=== PATIENT | male | born 1960 | race Caucasian/White ===

== ENCOUNTER 2019-11-07 21:27 | Inpatient (IN) | payer MEDICAID ==
[~2019-11-07] VITALS: Ht 172.7 cm; Wt 56.7 kg
--- NOTE | 2019-11-07 21:33 | NUR ---
MASK PLACED ON PATIENT FOR PRECAUTIONS.
--- NOTE | 2019-11-07 21:33 | NUR ---
Pt bibself c/o RUQ abdominal pain x 4 days, pt awake, alert, -sob, nad noted, vss, pending md thurston
[2019-11-07] MEDS ORDERED: MORPHINE SULFATE INJ 2 MG/ML DISP.SYRIN IV ONE (23:00)
[2019-11-07] MEDS ORDERED: MORPHINE SULFATE INJ 4 MG/ML DISP.SYRIN ONE (23:13)
[2019-11-07 23:20] LABS: BASOPHILS # (AUTO) 0.1 /CMM (0.0-0.2); BASOPHILS % (AUTO) 0.4 % (0.0-2.0); EOSINOPHILS % (AUTO) 0.2 % (0.0-6.0); HEMATOCRIT 30 % (39-51); HEMOGLOBIN 9.3 g/dL (13.5-17.5); LYMPHOCYTES # (AUTO) 2.4 /CMM (0.8-4.8); LYMPHOCYTES % (AUTO) 12.3 % (20.0-44.0); MEAN CORPUSCULAR HGB CONC 31 g/dl (31.0-36.0); MEAN CORPUSCULAR VOLUME 77 fL (80-96); MONOCYTES # (AUTO) 1.8 /CMM (0.1-1.30); MONOCYTES % (AUTO) 8.8 % (2.0-12.0); NEUTROPHILS # (AUTO) 15.6 /CMM (1.8-8.9); NEUTROPHILS % (AUTO) 78.3 % (43.0-81.0); PLATELET COUNT (AUTO) 269 /CMM (150-450); RED BLOOD CELL COUNT(AUTO) 3.85 MIL/uL (4.5-6.0); WHITE BLOOD COUNT (AUTO) 19.9 K/uL (4.3-11.0)
[2019-11-07 23:27] LABS: CALCIUM, SERUM 8.5 mg/dL (8.5-10.1)
[2019-11-07 23:32] LABS: ALBUMIN 1.6 g/dL (3.4-5.0); BILIRUBIN,DIRECT 2.1 mg/dL (0.0-0.2); BILIRUBIN,TOTAL 2.5 mg/dL (0.2-1.0); TOTAL PROTEIN, SERUM 7.9 g/dL (6.4-8.2)
[2019-11-07] MEDS ORDERED: IV NS 0.9% 250 ML IV ONE (23:52)
[2019-11-07] MEDS ORDERED: IOHEXOL-300 100 ML VIAL IV ONE (23:52)
[2019-11-07] MEDS ORDERED: CT SWABBABLE VALVE TRANS SET 1 EA INFUS.SET MC ONE (23:52)
[2019-11-08] MEDS ORDERED: VANCOMYCIN 1 GM in IV D5W 250 ML IV ONE (01:30)
[2019-11-08] MEDS ORDERED: PIPERACILLIN /TAZOBACTAM 3.375 G in IV D5W 50 ML IV ONE (01:30)
[2019-11-08] MEDS ORDERED: PIPERACILLIN /TAZOBACTAM 3.375 G VIAL IV ONE (01:45)
[2019-11-08 01:56] LABS: APPEARANCE,URINE Slightly Cloudy (CLEAR); BILIRUBIN,URINE MODERATE (NEGATIVE); BLOOD, URINE Negative Ery/uL (NEGATIVE); COLOR,URINE Amber (YELLOW); KETONES,URINE Negative (NEGATIVE); LEUKOCYTE ESTERASE ,URINE Negative (NEGATIVE); NITRITE, URINE Negative (NEGATIVE); PH,URINE 5.5 (5.0-8.0); PROTEIN,URINE 100 mg/dl (NEGATIVE); UGLUCOSE Negative (NEGATIVE)
[2019-11-08 02:15] LABS: BACTERIA,URINE Few /HPF (None Seen); MUCUS,URINE Few /LPF (None Seen); RBC,URINE 0-2 /HPF (0-2); SQUAMOUS EPITHELIAL CELL,UR Rare /HPF (None Seen); WBC,URINE 0-2 /HPF (0-3)
[2019-11-08] MEDS ORDERED: VANCOMYCIN 1 GM VIAL ONE (02:28)
[2019-11-08] MEDS ORDERED: IV NS 0.9% 1,000 ML BAG IV ONE (02:30)
--- NOTE | 2019-11-08 02:30 | NUR ---
PT RESTING COMFORTABLY IN BED. VITAL SIGNS STABLE. NO ACUTE DISTRESS NOTED AT THIS TIME. WILL CONTINUE TO MONITOR
--- NOTE | 2019-11-08 04:52 | NUR ---
BED ASSIGNMENT 315-1
[2019-11-08] MEDS ORDERED: SORBITOL SOLUTION 30 ML PO ONE (06:00)
--- NOTE | 2019-11-08 06:30 | NUR ---
DR. SALDANA ON THE PHONE WITH DR. SOUSA
--- NOTE | 2019-11-08 06:53 | NUR ---
REPORT GIVEN TO OANH LUI FOR RAMSEY
[2019-11-08] MEDS ORDERED: ZOLPIDEM TARTRATE 5 MG TABLET PO PRN (07:00)
[2019-11-08] MEDS ORDERED: ONDANSETRON HCL/PF 4 MG/2 ML VIAL IVP PRN (07:00)
[2019-11-08] MEDS ORDERED: HYDROCODONE/APAP 5/325MG 1 EACH TABLET PO PRN (07:00)
[2019-11-08] MEDS ORDERED: ACETAMINOPHEN 325 MG TABLET PO PRN (07:00)
[2019-11-08] MEDS ORDERED: MAG HYDROX/AL HYDROX/SIMETH 30 ML UDC PO PRN (07:00)
[2019-11-08] MEDS ORDERED: Z GUARD REMEDY 2 OZ OINT TP PRN (07:00)
[2019-11-08] MEDS ORDERED: MAGNESIUM HYDROXIDE 30 ML UDC PO PRN (07:00)
--- NOTE | 2019-11-08 07:33 | NUR ---
RN MS NOTES RECEIVED PT FROM E.R. STAFF, PT IS AWAKE, ALERT AND ORIENTED, ASSISTED TO BED, MADE COMFORTABLE, ROOM SET UP ORIENTATION PROVIDED TO PT. VERBALIZED UNDERSTANDING, CALL LIGHT WITHIN REACH, WITH COMPLAINT OF RUQ ABDOMINAL PAIN, NO COMPLAINT OF NAUSEA OR VOMITING, KEPT WARM AND COMFORTABLE IN BED.
[2019-11-08] MEDS ORDERED: FEE PK DOSING 1 MIN EA MC ONE (07:45)
[2019-11-08 08:00] VITALS: BP 140/102
[2019-11-08] MEDS: MORPHINE SULFATE INJ 2 MG/ML DISP.SYRIN IV PRN ×2 (08:14→17:31)
--- NOTE | 2019-11-08 08:15 | NUR ---
RN MS NOTES PT SEEN AND EXAMINED BY DR. JONES, PLAN OF CARE DISCUSSED WITH PT, VERBALIZED UNDERSTANDING, PAIN MEDS GIVEN ORDERED, NEEDS ATTENDED.
[2019-11-08] MEDS: POTASSIUM CHLORIDE 20 MEQ TAB.PRT.SR PO SCH ×3 (09:00→11:10)
[2019-11-08] MEDS: IV NS 0.9% 1,000 ML IV PRN ×2 (09:01→23:22)
[2019-11-08] MEDS: PIPERACILLIN /TAZOBACTAM 3.375 G in IV D5W 50 ML IV SCH ×3 (09:43→20:17)
--- NOTE | 2019-11-08 13:22 | NUR ---
RN MS NOTES PT EXAMINED BY TATUM SIMON, PT WITH SOFT AND DISTENDED ABDOMEN, WITH HERNIA, NO COMPLAINT OF PAIN AT THIS TIME.
--- NOTE | 2019-11-08 13:22 | NUR ---
RN MS NOTES PT IN BED, AWAKE, ALERT AND ORIENTED, NO COMPLAINT OF PAIN, BREATHING PATTERN NORMAL, SEEN AND EXAMINED BY TATUM ACOUSTIC SENSOR OPERATOR, PLAN OF CARE DISCUSSED WITH PT, VERBALIZED UNDERSTANDING, RECEIVED ORDERS FROM DR. MONTALVO FOR COLONOSCOPY TOMORROW, PT AGREED FOR THE PROCEDURE, CONSENTS SIGNED.
[2019-11-08 16:00] VITALS: BP 127/93
[2019-11-08] MEDS: VANCOMYCIN 1 GM in IV D5W 250 ML IV SCH (16:09)
--- NOTE | 2019-11-08 18:22 | NUR ---
RN MS NOTES PT IN BED, RESTING, PAIN MEDS GIVEN FOR PAIN MANAGEMENT, NOT IN DISTRESS, IV FLUIDS INFUSING WELL, DR MONTALVO ORDERED TO GET CONSENT ALSO FOR EGD, PROCEDURE EXPLAINED TO PT, VERBALIZED UNDERSTANDING, PT SIGNED CONSENT, ALL NEEDS ATTENDED.
--- NOTE | 2019-11-08 19:26 | NUR ---
RN NOTES RECEIVED PATIENT AWAKE, NEPHEW AT BEDSIDE. PATIENT IS CALM, WITH DISCOMFORT TOLERATED AT THIS TIME, IV ACCESS INTACT AND PATENT, IVF INFUSING WELL, NO S/S OF INFECTION, ASPIRATION PRECAUTION EMPHASIZED, SAFETY MEASURES IN PLACE, CALL LIGHT WITH IN EASY REACH, PATIENT UNDERSTAND THAT HE WILL HAVE COLONOSCOPY AND EGD TOMORROW, NOTHING BY MOUTH BY 12 MIDNIGHT, WILL TAKE GOLYTELY THROUGHOUT THE NIGHT. ALL NEEDS ANTICIPATED, WILL CONTINUE TO MONITOR ACCORDINGLY.
[2019-11-08 20:00] VITALS: BP 145/88
[2019-11-08] MEDS ORDERED: PEG 3350/NA SULF,BICARB,CL/KCL 4,000 ML BOTTLE PO ONE (20:00)
[2019-11-09] VITALS (10 sets, daily range): BP systolic 110–138; BP diastolic 80–108
[2019-11-09] MEDS: PIPERACILLIN /TAZOBACTAM 3.375 G in IV D5W 50 ML IV SCH ×4 (03:11→20:48)
[2019-11-09] MEDS: MORPHINE SULFATE INJ 2 MG/ML DISP.SYRIN IV PRN ×2 (03:27→16:14)
[2019-11-09] MEDS: VANCOMYCIN 1 GM in IV D5W 250 ML IV SCH ×2 (04:26→16:01)
[2019-11-09] MEDS ORDERED: SORBITOL SOLUTION 30 ML PO ONE (06:00)
--- NOTE | 2019-11-09 06:59 | NUR ---
RN NOTES ALL NEEDS ATTENDED AND MET ABLE TO REST, STILL WITH DISCOMFORT, NOTED 3X BOWEL MOVEMENT, STILL FORMED AND BROWN COLOR. WILL ENDORSE TO AM NURSE FOR CONTINUITY OF CARE.
--- NOTE | 2019-11-09 07:23 | NUR ---
RN NOTES RECEIVED PATIENT AWAKE IN BED IN NO ACUTE SIGN SO DISTRESS. A/O X4. ABLE TO MAKE NEEDS KNOWN, DENIES PAIN OR ANY DISCOMFORTS AT THIS TIME. PATIENT FOR COLONOSCOPY AND EGD TODAY, NPO EXCEPT MEDS MAINTAINED.CONTINUE ON GOLYTELY ORDERED. IV ACCESS ON LEFT HAND G #22 INTACT AND PATENT, IVF OF NS @ 100ML/HR INFUSING WELL, NO S/S OF INFILTRATIONS AT SITE NOTED. SAFETY MEASURES IN PLACE: BED IN LOW LOCKED POSITION WITH SR UP X2. CALL LIGHT WITH IN EASY REACH. WILL CONTINUE TO MONITOR ACCORDINGLY.
[2019-11-09 07:45] LABS: BASOPHILS # (AUTO) 0.1 /CMM (0.0-0.2); BASOPHILS % (AUTO) 0.5 % (0.0-2.0); HEMATOCRIT 33 % (39-51); LYMPHOCYTES # (AUTO) 1.5 /CMM (0.8-4.8); LYMPHOCYTES % (AUTO) 7.2 % (20.0-44.0); MEAN CORPUSCULAR HGB CONC 31 g/dl (31.0-36.0); MEAN CORPUSCULAR VOLUME 77 fL (80-96); MONOCYTES # (AUTO) 1.2 /CMM (0.1-1.30); MONOCYTES % (AUTO) 5.7 % (2.0-12.0); NEUTROPHILS # (AUTO) 17.6 /CMM (1.8-8.9); NEUTROPHILS % (AUTO) 86.6 % (43.0-81.0); PLATELET COUNT (AUTO) 294 /CMM (150-450); RED BLOOD CELL COUNT(AUTO) 4.28 MIL/uL (4.5-6.0); WHITE BLOOD COUNT (AUTO) 20.3 K/uL (4.3-11.0)
[2019-11-09 08:03] LABS: CALCIUM, SERUM 7.9 mg/dL (8.5-10.1); CREATININE 0.8 mg/dL (0.6-1.3); MAGNESIUM 1.6 mg/dL (1.8-2.4); PHOSPHORUS 3.2 mg/dL (2.5-4.9); POTASSIUM 3.2 mmol/L (3.5-5.1)
[2019-11-09] MEDS ORDERED: NIFE20CA PO (09:45)
[2019-11-09] MEDS ORDERED: GLIM4TAB37 PO (09:45)
[2019-11-09] MEDS: POTASSIUM CHLORIDE 20 MEQ TAB.PRT.SR PO SCH ×2 (10:07→11:07)
[2019-11-09] MEDS: Magnesium 1GM/D5W 100ML PREMIX 100 ML IV SCH ×2 (11:35→15:03)
--- NOTE | 2019-11-09 11:55 | NUR ---
RN NOTES PATIENT PICKED-UP VIA HIS BED TO SURGERY FOR EGD AND COLONOSCOPY.
[2019-11-09] MEDS ORDERED: METHYLENE BLUE 10 ML VIAL ONE (14:01)
--- NOTE | 2019-11-09 15:12 | NUR ---
RN NOTES PT RETURNED FROM SURGERY S/P EGD AND COLONOSCOPY BY DR MONTALVO WITH ORDER TO RESUME PRE-PROCEDURES ORDERS AND START CARDIAC DIET/DIABETIC DIET ORDERED. PT REMAINS A/O X4 AND ABLE TO MAKE NEEDS KNOWN. VS CHECKED: BP 136/97, P 94, R 16 , T 98.1F AND SP02 94% ON ROOM AIR. WILL CONTINUE TO MONITOR
--- NOTE | 2019-11-09 16:15 | NUR ---
RN NOTES/PAIN MANAGEMENT PT C/O OF ACHING SHARP PAIN ON RIGHT UPPER QUADRANT WITH SCALE OF 8/10. PRN MORPHINE 2MG/1ML ADMINISTERED AT 1614. WILL CONTINUE TO MONITOR AND REASSESS PT.
--- NOTE | 2019-11-09 18:36 | NUR ---
MS RN CLOSING NOTES PATIENT AWAKE IN BED WATCHING TV AT THIS TIME. A/O X4. ABLE TO MAKE NEEDS KNOWN. ON ROOM AIR, TOLERATING WELL WITH NO SOB NOTED DURING SHIFT. PIV'S ON LAC G#18 AND LEFT HAND G #22 BOTH INTACT AND PATENT, IVF OF NS @ 100ML/HR INFUSING WELL TO LEFT HAND, NO S/S OF INFILTRATIONS NOTED. SAFETY MEASURES IN PLACE: BED IN LOW LOCKED POSITION WITH SR UP X2. CALL LIGHT WITH IN EASY REACH. ALL NEEDS AND CARE ATTENDED WELL. WILL ENDORSE TO CAREER REPRESENTATIVE NURSE FOR RAMSEY..
[2019-11-09] MEDS: IV NS 0.9% 1,000 ML IV PRN (18:52)
--- NOTE | 2019-11-09 19:35 | NUR ---
MS RN NOTES PATIENT RECEIVED IN BED LAYING COMFORTABLY. PATIENT EASILY AWAKEN BY NAME AND LIGHT TOUCH. ALERT AND ORIENTED X 4. PATIENT ON ROOM AIR WITH NO SIGNS OF RESPIRATORY DISTRESS, PRESENTS NO SIGNS OF SOB, AND WITH EVEN NON-LABORED BREATHING. PATIENT IV ACCESS IN PLACE, PATENT AND INTACT. PATIENT COMPLAINS OF NO PAIN OR DISCOMFORT, PROVIDED COMFORT MEASURES TO PATIENT. SAFETY PRECAUTIONS IN PLACE WITH THE BED IN THE LOWEST POSITION, BILATERAL SIDE RAILS UP, BED LOCKED, BED ALARM ON, AND CALL LIGHT WITHIN EASY REACH OF THE PATIENT. WILL CONTINUE TO MONITOR PATIENT.
[2019-11-10 01:34] LABS: FERRITIN 599 ng/mL (8-388)
[2019-11-10 01:37] LABS: IRON, SERUM 27 ug/dl (50-175); TOTAL IRON BINDING CAPACITY 121 ug/dl (250-450)
[2019-11-10] MEDS: PIPERACILLIN /TAZOBACTAM 3.375 G in IV D5W 50 ML IV SCH ×4 (02:10→21:04)
[2019-11-10] MEDS: VANCOMYCIN 1 GM in IV D5W 250 ML IV SCH ×2 (03:00→15:37)
[2019-11-10] MEDS: MORPHINE SULFATE INJ 2 MG/ML DISP.SYRIN IV PRN ×3 (03:21→20:54)
--- NOTE | 2019-11-10 03:34 | NUR ---
MS RN NOTES PATIENT COMPLAINS OF PAIN 8/10 LOCATED ON RIGHT ABDOMEN. ADMINISTERED PRN MORPHINE 2mg/1ml AT 0321. WILL CONTINUE TO MONITOR PATIENT AND WILL REASSESS PATIENT PAIN LEVEL.
--- NOTE | 2019-11-10 06:50 | NUR ---
MS RN NOTES PATIENT IN BED LAYING COMFORTABLY, DENIES ANY PAIN OR DISCOMFORT AT THE THIS TIME. ALERT AND ORIENTED X 4. PATIENT ON ROOM AIR WITH NO SIGNS OF RESPIRATORY DISTRESS AND WITH EVEN NON-LABORED BREATHING. PATIENT IV ACCESS IN PLACE, INTACT AND PATENT RUNNING NS AT 100ml/hr. SKIN KEPT CLEAN AND DRY. MET ALL PATIENT'S NEEDS AND PROVIDED COMFORT MEASURES TO PATIENT. SAFETY PRECAUTIONS IN PLACE WITH BED IN THE LOWEST POSITION, BILATERAL SIDE RAILS UP, HEAD OF THE BED IN SEMI-FOWLERS POSITIONS, BED LOCKED, AND CALL LIGHT WITHIN EASY REACH OF THE PATIENT. WILL ENDORSE RAMSEY TO UPCOMING DAYSHIFT NURSE.
[2019-11-10 08:00] VITALS: BP 136/95
--- NOTE | 2019-11-10 08:00 | NUR ---
m/s record changer: initial assessment received pt in bed awake, a/ox4. no c/o pain or any discomfort. for oncology consult. pt aware. no distress noted. will continue to monitor.
[2019-11-10 08:08] LABS: CALCIUM, SERUM 7.8 mg/dL (8.5-10.1); CREATININE 1.2 mg/dL (0.6-1.3); POTASSIUM 4.8 mmol/L (3.5-5.1)
[2019-11-10 08:09] LABS: MAGNESIUM 2.4 mg/dL (1.8-2.4)
[2019-11-10] MEDS: IV D5/ 0.9% NACL 1,000 ML IV PRN ×2 (08:48→21:05)
--- NOTE | 2019-11-10 10:29 | NUR ---
m/s director financial services: md visit seen by dr. kellogg with new orders. orders acknowledged.
--- NOTE | 2019-11-10 12:00 | NUR ---
m/s supervisor inventory merchandising: notes pt request to have his iv remove to right ac. removed h/l per pt's request with tip intact.
--- NOTE | 2019-11-10 12:10 | NUR ---
m/s healthcare customer service: surgeon f/u seen and examined by yani (vahe) at this time. still awaiting for oncology to see pt.
--- NOTE | 2019-11-10 14:00 | NUR ---
m/s museum specialist: notes resting comfortable. no c/o pain or any discomfort. instructed to call for assistance. will monitor.
[2019-11-10 16:00] VITALS: BP 127/92
--- NOTE | 2019-11-10 16:00 | NUR ---
m/s field property loss specialist: notes resting comfortable in bed. no distress noted.
--- NOTE | 2019-11-10 18:44 | NUR ---
m/s coach driver: notes on the phone at this time. no distress noted. needs attended. call light within reach. will continue to monitor.
--- NOTE | 2019-11-10 19:00 | NUR ---
m/s commercial loan coordinator: notes report given to jennie (ainsley) for continuity of care.
--- NOTE | 2019-11-10 19:20 | NUR ---
MS RN NOTES PATIENT RECEIVED IN BED RESTING ALERT AND ORIENTED X 4. PATIENT ON ROOM AIR WITH NO SIGNS OF RESPIRATORY DISTRESS PRESENT, NO COMPLAINS OR SIGNS OF SOB, WITH EVEN NON-LABORED BREATHING. PATIENT IV ACCESS INTACT AND PATENT. PROVIDED COMFORT MEASURES TO PATIENT. AWAITING FOR ONCOLOGY CONSULT. SAFETY PRECAUTIONS IMPLEMENTED WITH BED IN THE LOWEST POSITION, BILATERAL SIDE RAILS UP, BED LOCKED, AND CALL LIGHT WITHIN EASY REACH OF PATIENT. WILL CONTINUE TO MONITOR PATIENT.
[2019-11-10 20:00] VITALS: BP 131/79
--- NOTE | 2019-11-10 21:00 | NUR ---
MS RN NOTES PATIENT COMPLAINS OF DISCOMFORT AND SHARP PAIN ON RIGHT SIDE OF ABDOMEN, RATING 9/10. ADMINISTERED PRN PAIN MEDICATION MORPHINE 2mg/ml. WILL CONTINUE TO MONITOR PATIENT AND REASSESS HIS PAIN LEVEL.
[2019-11-11] MEDS: PIPERACILLIN /TAZOBACTAM 3.375 G in IV D5W 50 ML IV SCH ×4 (02:30→20:56)
[2019-11-11 07:27] LABS: BASOPHILS # (AUTO) 0.1 /CMM (0.0-0.2); BASOPHILS % (AUTO) 0.8 % (0.0-2.0); HEMATOCRIT 31 % (39-51); HEMOGLOBIN 9.4 g/dL (13.5-17.5); LYMPHOCYTES % (AUTO) 12.2 % (20.0-44.0); MEAN CORPUSCULAR HGB CONC 31 g/dl (31.0-36.0); MEAN CORPUSCULAR VOLUME 78 fL (80-96); MONOCYTES # (AUTO) 1.4 /CMM (0.1-1.30); MONOCYTES % (AUTO) 8.5 % (2.0-12.0); NEUTROPHILS # (AUTO) 12.9 /CMM (1.8-8.9); NEUTROPHILS % (AUTO) 77.5 % (43.0-81.0); PLATELET COUNT (AUTO) 253 /CMM (150-450); RED BLOOD CELL COUNT(AUTO) 3.91 MIL/uL (4.5-6.0); WHITE BLOOD COUNT (AUTO) 16.6 K/uL (4.3-11.0)
--- NOTE | 2019-11-11 07:30 | NUR ---
RECEIVED PT. THIS AM ALERT AND ORIENTED X4.
--- NOTE | 2019-11-11 07:34 | NUR ---
MS RN NOTES PATIENT IN BED RESTING, EASILY AWAKEN BY NAME AND LIGHT TOUCH, ALERT AND ORIENTED X 4. PATIENT ON ROOM AIR WITH EVEN NON-LABORED BREATHING. PATIENT SKIN KEPT CLEAN AND DRY, IV ACCESS INTACT AND PATENT RUNNING D5 NS AT 100ml/hr. MET ALL NEEDS OF PATIENT AND PROVIDED COMFORT MEASURES. SAFETY PRECAUTIONS IMPLEMENTED WITH BED IN THE LOWEST POSITION, BILATERAL SIDE RAILS UP, BED ALARM ON, BED LOCKED AND CALL LIGHT WITHIN EASY REACH OF THE PATIENT. WILL ENDORSE PLAN OF CARE TO UPCOMING DAYSHIFT NURSE.
[2019-11-11 08:00] VITALS: BP 142/96
[2019-11-11 08:03] LABS: CALCIUM, SERUM 7.4 mg/dL (8.5-10.1); MAGNESIUM 1.9 mg/dL (1.8-2.4); PHOSPHORUS 2.3 mg/dL (2.5-4.9)
[2019-11-11 08:37] LABS: POTASSIUM 2.7 mmol/L (3.5-5.1)
[2019-11-11] MEDS: FERROUS SULFATE (325 MG) 325 MG/TAB TABLET PO SCH ×2 (09:36→18:42)
[2019-11-11] MEDS: POTASSIUM CHLORIDE 20 MEQ TAB.PRT.SR PO SCH ×2 (09:36→13:34)
[2019-11-11] MEDS: MORPHINE SULFATE INJ 2 MG/ML DISP.SYRIN IV PRN ×2 (09:59→20:47)
[2019-11-11 16:00] VITALS: BP 140/90
--- NOTE | 2019-11-11 16:00 | NUR ---
MED. X1 FOR ABD. PAIN WITH MORPHINE INJ.
--- NOTE | 2019-11-11 17:00 | NUR ---
GIVEN KCL REPLACEMENT FOR LOW POTASSIUM.
--- NOTE | 2019-11-11 19:00 | NUR ---
DR. KHOURY IN AND TOLD PT. THAT HE HAS COLON CA.
[2019-11-11 20:00] VITALS: BP 154/84
--- NOTE | 2019-11-11 20:48 | NUR ---
MS/RN OPENING NOTES PATIENT IN BED, REPORTD SEVERE PAIN OF 9/10 IN ABDOMEN HAD DINNER TONIGHT EAT HALF. NEEDED MORPHINE REQUESTED. WILL MONITOR. BED LOCKEDD, CALL LIGHTS WITHIN REACH, WILL MONITOR. RESPIRATIONS EVEN AND UNLABORED, WITH IV ON LEFT HAND GAUGE 20, ON IV FLUIDS. TO MONITOR. USES BSC AND URINAL, DISCUSSES SAFETY PREVENTION, VERBALIZED UNDERSTANDING.
[2019-11-12] MEDS: IV D5/ 0.9% NACL 1,000 ML IV PRN (01:58)
[2019-11-12] MEDS: PIPERACILLIN /TAZOBACTAM 3.375 G in IV D5W 50 ML IV SCH ×3 (02:01→15:45)
[2019-11-12] MEDS: MORPHINE SULFATE INJ 2 MG/ML DISP.SYRIN IV PRN ×4 (04:00→17:19)
--- NOTE | 2019-11-12 04:00 | NUR ---
MS/RN NOTES MORPHINE IV 2MG ADMINISTER TO PATIENT FOR SEVERE PAIN UPON AWAKENING FROM SLEEP .
--- NOTE | 2019-11-12 04:05 | NUR ---
MS/RN NOTES BLOOD PRESSURE TAKEN AT 139/98 WITH PULSE RATE OF 94 PRIOR TO ADMINISTRATION OF MORPHINE. ALERT, ORIENTED.
[2019-11-12 06:28] LABS: BASOPHILS # (AUTO) 0.2 /CMM (0.0-0.2); BASOPHILS % (AUTO) 0.8 % (0.0-2.0); EOSINOPHILS % (AUTO) 0.9 % (0.0-6.0); HEMATOCRIT 30 % (39-51); HEMOGLOBIN 9.3 g/dL (13.5-17.5); LYMPHOCYTES # (AUTO) 1.9 /CMM (0.8-4.8); LYMPHOCYTES % (AUTO) 10.5 % (20.0-44.0); MEAN CORPUSCULAR HGB CONC 31 g/dl (31.0-36.0); MEAN CORPUSCULAR VOLUME 79 fL (80-96); MONOCYTES # (AUTO) 1.7 /CMM (0.1-1.30); MONOCYTES % (AUTO) 9.1 % (2.0-12.0); NEUTROPHILS # (AUTO) 14.4 /CMM (1.8-8.9); NEUTROPHILS % (AUTO) 78.7 % (43.0-81.0); PLATELET COUNT (AUTO) 245 /CMM (150-450); RED BLOOD CELL COUNT(AUTO) 3.84 MIL/uL (4.5-6.0); WHITE BLOOD COUNT (AUTO) 18.3 K/uL (4.3-11.0)
[2019-11-12 06:52] LABS: CALCIUM, SERUM 7.4 mg/dL (8.5-10.1); CREATININE 0.9 mg/dL (0.6-1.3); MAGNESIUM 1.7 mg/dL (1.8-2.4); PHOSPHORUS 2.1 mg/dL (2.5-4.9); POTASSIUM 3.2 mmol/L (3.5-5.1)
--- NOTE | 2019-11-12 06:53 | NUR ---
323-2 MS/RN CLOSING NOTES PATIENT ABLE TO SLEEP DURING THE NIGHT, ALERT, ORIENTED ABLE TO VERBALIZED NEEDS, ON PAIN MANAGEMENT MONITOIRNG.SKIN INTACT AND DRY, DISCUSSED SAFETY MEASURES, ATTENDED ALL NEEDS. BED LOCKED, CALL LIGHTS WITHIN REACH. WILL ENDORSE TO AM RN FOR RAMSEY. IV FLUIDS RUNNING.
[2019-11-12 08:00] VITALS: BP_SYST 127; BP_SYST 140; BP_DIAS 106; BP_DIAS 84
--- NOTE | 2019-11-12 08:00 | NUR ---
MS RN OPENING NOTES RECEIVED PT IN BED. AWAKE ALERT AND ORIENTED X3. NO CARDIAC OR RESP DISTRESS NOTED. NO SOB NOTED. SATURATING WELL ON ROOM AIR. CONTINENT OFB/B USES BSC AND URINAL. IV ACCESS NOTED ON L HAND G22. D5NS RUNNING AT 100ML/HR. TOLERATING IV FLUIDS WELL. NO S/S OF INFECTION OR INFILTRATION NOTED. SAFETY PRECAUTIONS IN PLACE. CALL LIGHT WITHIN REACH. BED LOCKED AND IN LOW POSITION. SIDE RAILS UP X2. WILL CONT TO MONITOR.
[2019-11-12] MEDS: FERROUS SULFATE (325 MG) 325 MG/TAB TABLET PO SCH ×2 (08:06→16:20)
[2019-11-12] MEDS: POTASSIUM CHLORIDE 20 MEQ TAB.PRT.SR PO SCH ×2 (09:43→11:04)
[2019-11-12] MEDS: Magnesium 1GM/D5W 100ML PREMIX 100 ML IV SCH ×2 (09:44→11:33)
[2019-11-12] MEDS ORDERED: K PHOS NEUTRAL 250 MG TABLET PO ONE (10:00)
--- NOTE | 2019-11-12 13:00 | NUR ---
PTS NEPHEW CALLED PTS NEPHEW WAS CALLED AND NOTIFIED REGARDINGS PLAN FOR D/C TODAY. PER CARLY SYKES. HE WILL BE HERE AROUND 730PM TONIGHT ONCE HE GETS OFF WORK.
--- NOTE | 2019-11-12 18:21 | NUR ---
MS RN CLOSING NOTES PT IN BED. AWAKE ALERT AND ORIENTED X3. NO CARDIAC OR RESP DISTRESS NOTED. NO SOB NOTED. SATURATING WELL ON ROOM AIR. CONTINENT OF B/B USES BSC AND URINAL. IV ACCESS NOTED ON L HAND G22. D5NS RUNNING AT 100ML/HR. TOLERATING IV FLUIDS WELL. NO S/S OF INFECTION OR INFILTRATION NOTED. SAFETY PRECAUTIONS IN PLACE. CALL LIGHT WITHIN REACH. BED LOCKED AND IN LOW POSITION. SIDE RAILS UP X2. PT IS SCHEDULED TO BE DISCHARGED TONIGHT. NEPHEW WILL BE PICKING HIM UP AROUND 730PM. PTS PAIN WAS MANAGED THROUGHOUT THE SHIFT. WILL ENDORSE TO NEXT SHIFT.
--- NOTE | 2019-11-12 19:45 | NUR ---
MS/FITTER/WELDER NOTES: PATIENT'S NEPHEW ARRIVED, WAITING IN THE LOBBY. PATIENT EDUCATED ON DISCHARGE INFORMATION. PATIENT'S NEPHEW ALSO INFORMED ABOUT THE DISCHARGE INFORMATION AND PRESCRIPTION. IV LINE REMOVED. APPLIED GAUZE TO PREVENT BLEEDING. PATIENT LEFT THE UNIT VIA WHEELCHAIR AT 1945, IN STABLE CONDITION.
== END 2019-11-12 19:45 | disposition home or self-care (01) | DRG 720 ==
LOC: ER 21:37 → TELE 11-08 05:18 → MED 11-08 09:46
PROVIDERS: ADMIT Family Medicine; ATTEND Student in an Organized Health Care Education/Training Program
PROC: 0DJ08ZZ Inspection of Upper Intestinal Tract, Via Natural or Artificial Opening Endoscopic (ICD-10-PCS; principal; 2019-11-09)
PROC: 0DBH8ZX Excision of Cecum, Via Natural or Artificial Opening Endoscopic, Diagnostic (ICD-10-PCS; principal; 2019-11-09)
PROC: 0DBK8ZX Excision of Ascending Colon, Via Natural or Artificial Opening Endoscopic, Diagnostic (ICD-10-PCS; principal; 2019-11-09)
DX: A41.9 Sepsis, unspecified organism (principal); N17.0 Acute kidney failure with tubular necrosis; E43 Unspecified severe protein-calorie malnutrition; J18.9 Pneumonia, unspecified organism; E11.649 Type 2 diabetes mellitus with hypoglycemia without coma; C78.7 Secondary malignant neoplasm of liver and intrahepatic bile duct; E87.2 Acidosis; E83.42 Hypomagnesemia; C18.9 Malignant neoplasm of colon, unspecified; D50.9 Iron deficiency anemia, unspecified; D72.829 Elevated white blood cell count, unspecified; J98.11 Atelectasis; E87.6 Hypokalemia; Z68.1 Body mass index [BMI] 19.9 or less, adult; R79.89 Other specified abnormal findings of blood chemistry; R74.0 Nonspecific elevation of levels of transaminase and lactic acid dehydrogenase [LDH]; K64.4 Residual hemorrhoidal skin tags; E88.09 Other disorders of plasma-protein metabolism, not elsewhere classified
CPT/HCPCS: 36415; 71045-TC; 71250-TC; 76705-TC; 80048-TC; 80076-TC; 80202-TC; 81000-TC; 82378; 82728-TC; 82962-TC; 83540-TC; 83605-TC; 83690-TC; 83735-TC; 84100-TC; 85025-TC; 87040-TC; 87081-TC; 87086-TC; 88305-TC; 88311-TC; 93307-TC; G0378; J2270; J2405; J2543; J2704; J3370; J3475; J3490; J7030; J7042; J7050; J7060; Q9967; Q9968